=== PATIENT | female | born 1985 | race American Indian/Alaskan Native ===

== ENCOUNTER 2020-02-24 15:51 | Emergency (ER) | payer MEDICAID ==
[2020-02-24 17:32] VITALS: BP 129/76
[2020-02-24] MEDS ORDERED: IBUPROFEN 600 MG TAB PO ONE (18:22)
--- NOTE | 2020-02-24 18:25 | Emergency Department Report ---
ED Extremity Problem HPI - General Chief complaint: Extremity Problem,Nontraumatic Stated complaint: RT FOOT PAIN Time Seen by Provider: 02/24/20 18:21 Source: patient Mode of arrival: Ambulatory Limitations: No Limitations - History of Present Illness Initial comments: The patient was evaluated in the emergency department for symptoms described in the history of present illness. He/she was evaluated in the context of the global COVID-19 pandemic, which necessitated consideration that the patient might be at risk for infection with the virus that causes COVID-19. Institutional protocols and algorithms that pertain to the evaluation of patients at risk for COVID-19 are in a state of rapid change based on information released by regulatory bodies including the CDC and federal and state organizations. These policies and algorithms were followed during the patient's care in the emergency department. Please note that these policies, procedures and recommendations changed on a rapid basis. 34-year-old -[place] female presents to the emergency room for 4-day history of right foot pain on plantar aspect. Patient states that the pain is worse with stepping and feels like she is stepping on glass. Patient states that she has been picking at the bottom of her foot just right under the second and third metatarsal. Patient denies any fever chills no Covid contact last menstrual period was 02/10/2020 and had a tubal ligation. Denies any swelling discharge from the foot. 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 MD Complaint: extremity pain Onset/Timin -: days(s) Location: right, other (Foot) History of Same: No Severity scale (0 -10): 6 Quality: sharp Consistency: intermittent Improves with: immobilization Worsens with: weight bearing, walking, palpation Associated Symptoms: denies other symptoms - Related Data Previous Rx's Medication Instructions Recorded Last Taken Type Ibuprofen [Motrin 800 MG tab] 800 mg PO Q8HR PRN #30 tablet 02/24/20 Unknown Rx Allergies Allergy/AdvReac Type Severity Reaction Status Date / Time No Known Allergies Allergy Unverified 02/24/20 16:13 ED Review of Systems ROS: Stated complaint: RT FOOT PAIN Other details as noted in HPI Comment: All other systems reviewed and negative ED Past Medical Hx - Past Medical History Previous Medical History?: No - Surgical History Past Surgical History?: No - Social History Smoking Status: Never Smoker Substance Use Type: None - Medications Home Medications: Home Medications Medication Instructions Recorded Confirmed Last Taken Type Ibuprofen [Motrin 800 MG tab] 800 mg PO Q8HR PRN #30 tablet 02/24/20 Unknown Rx ED Physical Exam - General Limitations: No Limitations General appearance: alert, in no apparent distress - Head Head exam: Present: atraumatic, normocephalic - Eye Eye exam: Present: normal appearance - ENT ENT exam: Present: mucous membranes moist - Neck Neck exam: Present: normal inspection, full ROM - Respiratory Respiratory exam: Absent: accessory muscle use - Expanded Lower Extremity Exam Right Hip exam: Present: normal inspection, full ROM Upper Leg exam: Present: normal inspection, full ROM Knee exam: Present: normal inspection, full ROM Lower Leg exam: Present: normal inspection, full ROM Ankle exam: Present: normal inspection, full ROM Foot/Toe exam: Present: tenderness (Second tarsal on the plantar aspect.). Absent: swelling, abrasion, laceration, erythema, puncture wound Neuro vascular tendon exam: Present: no vascular compromise. Absent: extremity cold to touch, pallor - Back Exam Back exam: Present: normal inspection - Neurological Exam Neurological exam: Present: alert, oriented X3 - Psychiatric Psychiatric exam: Present: normal affect, normal mood - Skin Skin exam: Present: warm, dry, intact, normal color. Absent: rash ED Course Vital Signs 02/24/20 17:29 Temperature 98 F Pulse Rate 77 Respiratory 16 Rate Blood Pressure 129/76 O2 Sat by Pulse 100 Oximetry ED Medical Decision Making - Radiology Data Radiology results: report reviewed Referring Physician:BRUNO SEBASTIANPatient Name:GREG TIWARIPatient ID:[id number] of :[id number]:FemaleAccession:[id number] Date:[id number] Status:Finalized Findings [facility] [address] [place] [address] XRay Report Signed Patient: GREG TIWARI MR#: [id number] : 1985 Acct:[id number] Age/Sex: 34 / F ADM Date: 02/24/20 Loc: ED Attending Dr: Ordering Physician: ARY DOTSON Date of Service: 02/24/20 Procedure(s): XR foot 2V RT Accession Number(s): [id number] cc: ARY DOTSON Fluoro Time In Minutes: RIGHT FOOT 3 VIEW(S) INDICATION / CLINICAL INFORMATION: right foot pain fob COMPARISON: None available. FINDINGS: BONES / JOINT(S): No acute fracture or subluxation. No significant arthritis. SOFT TISSUES: No significant abnormality. No radiopaque foreign body. ADDITIONAL FINDINGS: None. IMPRESSION: No acute osseous findings of the right foot. No radiopaque foreign body identified. Signer Name: Gama Bernabe MD Signed: 02/24/2020 7:20 PM Workstation Name: [id number] Transcribed By: FRANK Dictated By: GAMA SANCHEZ MD Electronically Authenticated By: GAMA SANCHEZ MD Signed Date/Time: 02/24/201919 DD/ 18 TD/TT: - Medical Decision Making 34-year-old -Ch[place]an female presents to the emergency room for 4-day history of right foot pain on plantar aspect. Patient states that the pain is worse with stepping and feels like she is stepping on glass. Patient states that she has been picking at the bottom of her foot just right under the second and third metatarsal. Patient denies any fever chills no Covid contact last menstrual period was 02/10/2020 and had a tubal ligation. Denies any swelling discharge from the foot. Discussed with patient we will do an x-ray just to be sure there is no foreign body but explained to patient that if it is glass most likely will not see. Also discussed with patient he may be a Wagner neuroma which is common in that area of the foot and it comes from standing and walking. Patient was given ibuprofen for pain management. Critical care attestation.: If time is entered above; I have spent that time in minutes in the direct care of this critically ill patient, excluding procedure time. ED Disposition Clinical Impression: Foot pain, right, Wagner's neuroma of right foot Disposition: - TO HOME OR SELFCARE Is pt being admited?: No Does the pt Need Aspirin: No Condition: Stable Instructions: Wagner Neuralgia Additional Instructions: X-rays negative for any acute abnormalities no foreign body. Please take ibuprofen or Aleve as needed for pain management. Recommend pad in your shoe at the ball of your foot. Follow-up with a service attendant Prescriptions: Ibuprofen [Motrin 800 MG tab] 800 mg PO Q8HR PRN #30 tablet PRN Reason: Pain , Severe (7-10) Referrals: MAINOR TREJO DPM [Staff Physician] - 3-5 Days Forms: Work/School Release Form(ED)
--- NOTE | 2020-02-24 19:25 | XRay Report ---
RIGHT FOOT 3 VIEW(S) INDICATION / CLINICAL INFORMATION: right foot pain fob COMPARISON: None available. FINDINGS: BONES / JOINT(S): No acute fracture or subluxation. No significant arthritis. SOFT TISSUES: No significant abnormality. No radiopaque foreign body. ADDITIONAL FINDINGS: None. IMPRESSION: No acute osseous findings of the right foot. No radiopaque foreign body identified. Signer Name: Mack Bernabe MD Signed: 02/24/2020 7:20 PM Workstation Name: [id number]
== END 2020-02-24 20:00 | disposition home or self-care (01) ==
LOC: ED 15:51
DX: G57.61 Lesion of plantar nerve, right lower limb (principal); M79.671 Pain in right foot; Z79.1 Long term (current) use of non-steroidal anti-inflammatories (NSAID)

== ENCOUNTER 2020-07-03 19:19 | Emergency (ER) | payer MEDICAID ==
[2020-07-03 20:16] VITALS: BP 121/77
[2020-07-03] MEDS ORDERED: dexAMETHasone 20 MG/5 ML VIAL IV ONE (20:19)
[2020-07-03] MEDS ORDERED: CYCLOBENZAPRINE 10 MG TAB PO ONE (20:19)
[2020-07-03] MEDS ORDERED: KETOROLAC 30 MG/1 ML INJ IV ONE (20:19)
[2020-07-03 20:47] LABS: Basophils # (Auto) 0.1 K/mm3 (0.0-0.1); Basophils % (Auto) 1.6 % (0.0-1.8); Eosinophils # (Auto) 0.1 K/mm3 (0.0-0.4); Eosinophils % (Auto) 1.5 % (0.0-4.3); Hematocrit 27.7 % (30.3-42.9); Hemoglobin 8.9 gm/dl (10.1-14.3); Lymphocytes # (Auto) 1.6 K/mm3 (1.2-5.4); Lymphocytes % (Auto) 35.7 % (13.4-35.0); Mean Corpuscular HGB Conc 32 % (30-34); Mean Corpuscular Volume 75 fl (79-97); Monocytes # (Auto) 0.7 K/mm3 (0.0-0.8); Monocytes % (Auto) 15.7 % (0.0-7.3); Platelet Count 325 K/mm3 (140-440)
[2020-07-03 20:49] LABS: Red Cell Distribution Width 20.1 % (13.2-15.2)
[2020-07-03] MEDS ORDERED: KETOROLAC 30 MG/1 ML INJ ONE (20:52)
[2020-07-03] MEDS ORDERED: dexAMETHasone 20 MG/5 ML VIAL ONE (20:52)
[2020-07-03] MEDS ORDERED: CYCLOBENZAPRINE 10 MG TAB ONE (20:52)
--- NOTE | 2020-07-03 20:59 | Event Note ---
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 Further treatment and workup at subsequent clinical providers discretion. Patient/guardian urged not to elope from the ED as their condition may be serious if not clinically assessed and managed. Initial orders include: Labs, UA, CT, meds
[2020-07-03 21:10] LABS: Alanine Aminotransferase 18 units/L (7-56); Albumin 4.1 g/dL (3.9-5); Blood Urea Nitrogen 9 mg/dL (7-17); Calcium 8.9 mg/dL (8.4-10.2); Hemolysis Index 4
[2020-07-03 21:11] LABS: Bilirubin,Urine NEG (Negative); Blood,Urine SM (Negative); Color,Urine Yellow (Yellow); Mucus,Urine FEW /HPF; Protein,Urine <15 mg/dL mg/dL (Negative)
[2020-07-03 21:12] LABS: BUN/Creatinine Ratio 13
--- NOTE | 2020-07-03 21:35 | Cat Scan Report ---
CT ABDOMEN AND PELVIS WITHOUT CONTRAST INDICATION / CLINICAL INFORMATION: right flank pain. TECHNIQUE: Axial CT images were obtained through the abdomen and pelvis without IV contrast. All CT scans at [facility] location are performed using CT dose reduction for ALARA by means of automated exposure control. COMPARISON: None available. FINDINGS: LOWER CHEST: No significant abnormality. LIVER: No significant abnormality. GALLBLADDER: Surgically absent. PANCREAS: No significant abnormality. SPLEEN: No significant abnormality. ADRENALS: No significant abnormality. KIDNEYS / URETERS: No significant abnormality. No nephroureterolithiasis or obstructive uropathy. URINARY BLADDER: No significant abnormality. REPRODUCTIVE ORGANS: No significant abnormality. STOMACH / SMALL BOWEL: No significant abnormality. COLON: No significant abnormality. APPENDIX: No significant abnormality. PERITONEUM: No free fluid. No free air. No fluid collection. LYMPH NODES: No significant adenopathy. AORTA / ARTERIES: No significant abnormality. IVC / VEINS: No significant abnormality. SKELETAL SYSTEM: No significant abnormality. ADDITIONAL FINDINGS: None. IMPRESSION: No acute abdominopelvic abnormality. Specifically, no evidence of nephroureterolithiasis or obstructi ve uropathy. Signer Name: Davon Chun MD Signed: 07/03/2020 9:31 PM Workstation Name: [email or web address][id number]
--- NOTE | 2020-07-03 22:21 | Emergency Department Report ---
ED Back Pain/Injury HPI - General Chief Complaint: Urogenital-Female Stated Complaint: BACK PAIN Time Seen by Provider: 07/03/20 20:15 Source: patient Limitations: No Limitations - History of Present Illness Initial Comments: Patient is a 35-year-old -[place] Islander female with no past medical history presents to the ED with complaint of acute onset persistent severe right lateral low back pain for the last 2 days. Patient states that the pain has been constant, persistent and worse with any movement or palpation. Patient states that her job entails being on her feet all day, and therefore the pain has been worsening the last 2 days since she had to go to work. Patient states that she initially started taking [id number] pain medication with no relief. Patient also states that her own mother gave her some [employer] [place] tablets but that this did not help her pain. Patient denies fall, traumatic injury, heavy lifting, nausea, vomiting, dysuria, urinary frequency and urgency, vaginal bleeding, vaginal discharge, numbness and tingling or weakness of lower extremities bilaterally, urinary or bowel incontinence, saddle paresthesia, fever, chills, abdominal pain, dizziness, syncope or chest pain and shortness of breath. MD Complaint: back pain (right lateral low back pain) -: Sudden, days(s) (2) Similar Symptoms Previously: No Place: home Radiation: none Severity: severe Severity scale (0 -10): 8 Quality: sharp, aching Consistency: constant Improves With: none Worsens With: movement, walking Context: turning/twisting Associated Symptoms: denies other symptoms. denies: confusion, weakness, numbness, difficulty walking, cough, difficulty urinating, diaphoresis, incontinence, fever/chills, headaches, abdominal pain, loss of appetite, nausea/vomiting, rash, seizure, shortness of breath, syncope Treatments Prior to Arrival: prescription analgesics ([employer] [place]) - Related Data Previous Rx's Medication Instructions Recorded Last Taken Type Ibuprofen [Motrin 800 MG tab] 800 mg PO Q8HR PRN #30 tablet 02/24/20 Unknown Rx Baclofen 20 mg PO Q8H PRN #30 tablet 07/03/20 Unknown Rx Naproxen 500 mg PO Q12H PRN #30 tablet 07/03/20 Unknown Rx predniSONE [Deltasone] 40 mg PO QDAY #10 tab 07/03/20 Unknown Rx Allergies Allergy/AdvReac Type Severity Reaction Status Date / Time No Known Allergies Allergy Unverified 07/03/20 19:57 ED Review of Systems ROS: Stated complaint: BACK PAIN Other details as noted in HPI Constitutional: denies: chills, fever Eyes: denies: eye pain, eye discharge, vision change ENT: denies: ear pain, throat pain Respiratory: denies: cough, shortness of breath, wheezing Cardiovascular: denies: chest pain, palpitations Endocrine: no symptoms reported Gastrointestinal: denies: abdominal pain, nausea, vomiting, diarrhea Genitourinary: denies: urgency, dysuria, discharge Musculoskeletal: back pain (LOWER BACK PAIN), arthralgia (Right lateral low back pain). denies: joint swelling Skin: denies: rash, lesions Neurological: denies: headache, weakness, paresthesias Psychiatric: denies: anxiety, depression Hematological/Lymphatic: denies: easy bleeding, easy bruising ED Past Medical Hx - Past Medical History Previous Medical History?: No - Surgical History Past Surgical History?: No - Social History Smoking Status: Never Smoker Substance Use Type: None - Medications Home Medications: Home Medications Medication Instructions Recorded Confirmed Last Taken Type Ibuprofen [Motrin 800 MG tab] 800 mg PO Q8HR PRN #30 tablet 02/24/20 Unknown Rx Baclofen 20 mg PO Q8H PRN #30 tablet 07/03/20 Unknown Rx Naproxen 500 mg PO Q12H PRN #30 tablet 07/03/20 Unknown Rx predniSONE [Deltasone] 40 mg PO QDAY #10 tab 07/03/20 Unknown Rx ED Physical Exam - General Limitations: No Limitations General appearance: alert, in no apparent distress - Head Head exam: Present: atraumatic, normocephalic, normal inspection - Eye Eye exam: Present: normal appearance, PERRL, EOMI Pupils: Present: normal accommodation - ENT ENT exam: Present: normal exam, normal orophraynx, mucous membranes moist, TM's normal bilaterally, normal external ear exam - Neck Neck exam: Present: normal inspection, full ROM - Respiratory Respiratory exam: Present: normal lung sounds bilaterally. Absent: respiratory distress, wheezes, rales, stridor, chest wall tenderness, accessory muscle use, prolonged expiratory - Cardiovascular Cardiovascular Exam: Present: regular rate, normal rhythm, normal heart sounds. Absent: systolic murmur, diastolic murmur, rubs, gallop - GI/Abdominal GI/Abdominal exam: Present: soft, normal bowel sounds. Absent: tenderness, guarding, rebound, hyperactive bowel sounds, hypoactive bowel sounds, organomegaly - Extremities Exam Extremities exam: Present: normal inspection, full ROM, normal capillary refill - Back Exam Back exam: Present: normal inspection, full ROM, tenderness (Palpable right lateral lumbosacral paraspinal musculoskeletal tenderness), muscle spasm, paraspinal tenderness. Absent: CVA tenderness (R), CVA tenderness (L), vertebral tenderness - Neurological Exam Neurological exam: Present: alert, oriented X3, CN II-XII intact, normal gait, reflexes normal - Psychiatric Psychiatric exam: Present: normal affect, normal mood - Skin Skin exam: Present: warm, dry, intact, normal color. Absent: rash ED Course Vital Signs 07/03/20 07/03/20 19:57 20:58 Temperature 98.1 F Pulse Rate 69 Respiratory 16 18 Rate Blood Pressure 121/77 O2 Sat by Pulse 100 Oximetry ED Medical Decision Making - Lab Data Result diagrams: 07/03/20 20:38 07/03/20 20:38 - Radiology Data Radiology results: report reviewed, image reviewed [facility] [address] [place] [address] Cat Scan Report Signed Patient: GREG TIWARI MR #: [id number] : 1985 Acct:[id number] Age/Sex: 35 / F ADM Date: 07/03/20 Loc: ED Attending Dr: Ordering Physician: ARY BAUER Date of Service: 07/03/20 Procedure(s): CT abdomen pelvis wo con Accession Number(s): [id number] cc: ARY BAUER CT ABDOMEN AND PELVIS WITHOUT CONTRAST INDICATION / CLINICAL INFORMATION: right flank pain. TECHNIQUE: Axial CT images were obtained through the abdomen and pelvis without IV contrast. All CT scans at this location are performed using CT dose reduction for ALARA by means of automated exposure control. COMPARISON: None available. FINDINGS: LOWER CHEST: No significant abnormality. LIVER: No significant abnormality. GALLBLADDER: Surgically absent. PANCREAS: No significant abnormality. SPLEEN: No significant abnormality. ADRENALS: No significant abnormality. KIDNEYS / URETERS: No significant abnormality. No nephroureterolithiasis or obstructive uropathy. URINARY BLADDER: No significant abnormality. REPRODUCTIVE ORGANS: No significant abnormality. STOMACH / SMALL BOWEL: No significant abnormality. COLON: No significant abnormality. APPENDIX: No significant abnormality. PERITONEUM: No free fluid. No free air. No fluid collection. LYMPH NODES: No significant adenopathy. AORTA / ARTERIES: No significant abnormality. IVC / VEINS: No significant abnormality. SKELETAL SYSTEM: No significant abnormality. ADDITIONAL FINDINGS: None. IMPRESSION: No acute abdominopelvic abnormality. Specifically, no evidence of nephroureterolithiasis or obstructive uropathy. Signer Name: Yaneth Chun MD Signed: 07/03/2020 9:31 PM Workstation Name: [id number] Transcribed By: SS Dictated By: YNAETH CHUN Electronically Authenticated By: YANETH CHUN Signed Date/Time: 07/03/202130 DD/ 25 TD/TT: - Medical Decision Making This is a 35-year-old -[place] Island[place] female with no past medical history presents to the ED with complaint of acute onset persistent severe right lateral low back pain for the last 2 days. Patient states that the pain has been constant, persistent and worse with any movement or palpation. Patient states that her job entails being on her feet all day, and therefore the pain has been worsening the last 2 days since she had to go to work. Patient states that she initially started taking [id number]-[id number] pain medication with no relief. Patient also states that her own mother gave her some [employer] [place] tablets but that this did not help her pain. In the ED, patient is alert and oriented x3 and is not in distress with normal vital signs. Patient was treated for pain in the ED and on reevaluation, patient's pain is well controlled medications. Based on the patient's past medical history, physical exam findings and lab test results as well as imaging report, patient symptoms are likely due to muscle spasm and muscle strain of lumbosacral area. Lab test results were reviewed and are all nonactionable. Abdomen pelvis CT scan without contrast showed no acute abdominal pelvic abnormalities including kidney stones. Patient was therefore discharged home on pain medications and muscle relaxants and was advised to follow-up with her primary care physician in 5 to 7 days for reevaluation. Patient was advised return to the ED immediately if symptoms get worse. - Differential Diagnosis Muscle spasm; Muscle strain; sciatica; Kidney stones, UTI Critical care attestation.: If time is entered above; I have spent that time in minutes in the direct care of this critically ill patient, excluding procedure time. ED Disposition Clinical Impression: Spasm of muscle of lower back, Strain of muscle, fascia and tendon of lower back, initial encounter Acute low back pain without sciatica Qualifiers: Back pain laterality: right Qualified Code(s): M54.5 - Low back pain Disposition: TO HOME OR SELFCARE Is pt being admited?: No Does the pt Need Aspirin: No Condition: Stable Instructions: Muscle Cramps and Spasms, [id number], Muscle Strain, [id number], Acute Back Pain, Adult, Low Back Sprain or Strain Rehab-SportsMed Additional Instructions: All lab test results were reviewed and are all nonactionable. The abdomen pelvis CT scan without contrast showed no acute abdominopelvic abnormalities. Based on your history and physical exam findings as well as normal lab test results as well as normal imaging reports, your symptoms are likely due to muscle strain and muscle spasm of your low back. Therefore take medications with food, drink plenty of fluids and follow-up with your primary care physician in 5 to 7 days for reevaluation. Return to the ED immediately if symptoms get worse. Prescriptions: Baclofen 20 mg PO Q8H PRN #30 tablet PRN Reason: Muscle Spasm predniSONE [Deltasone] 40 mg PO QDAY #10 tab Naproxen 500 mg PO Q12H PRN #30 tablet PRN Reason: Pain , Severe (7-10) Referrals: [facility] [Provider Group] - 3-5 Days Time of Disposition: 22:22 Print Language: LAO
== END 2020-07-03 22:50 | disposition home or self-care (01) ==
LOC: ED 19:19
DX: S39.012A Strain of muscle, fascia and tendon of lower back, initial encounter (principal); X58.XXXA Exposure to other specified factors, initial encounter; Y93.89 Activity, other specified; Y92.89 Other specified places as the place of occurrence of the external cause; Y99.8 Other external cause status
CPT/HCPCS: 36415; 74176; 80053; 81001; 83690; 84703; 85025; 87086; 96374; 96375; 99284; J1100; J1885